=== PATIENT | female | born 1965 | race Caucasian/White ===

== ENCOUNTER 2018-11-16 07:55 | Day surgery (SDC) ==
[2018-11-16] MEDS: TETRACAINE 0.5% UNIT-DOSE OP PRN ×2 (08:05→08:45)
[2018-11-16] MEDS: BETADINE OPTH PREP OP PRN ×2 (08:05→08:45)
[2018-11-16] MEDS: CYCLOGYL 2% OPTH OP PRN ×3 (08:06→08:16)
[2018-11-16] MEDS ORDERED: LIDOCAINE 1% 20 ML MDV ID STA (08:18)
[2018-11-16] MEDS ORDERED: ZOFRAN 4 MG/2 ML IVP ONE (08:18)
[2018-11-16 08:26] VITALS: TEMP 976
[2018-11-16] MEDS ORDERED: VERSED ONE (08:50)
[2018-11-16] MEDS ORDERED: ZOFRAN 4 MG/2 ML ONE (08:50)
[2018-11-16] MEDS ORDERED: SUBLIMAZE ONE (08:50)
[2018-11-16] MEDS: LIDOCAINE 1%/PHENYLEPHRINE 1.5% BSS (SURGERY) INTRAOCULA ONE ×2 (08:55→09:06)
[2018-11-16] MEDS: BSS WITH EPINEPHRINE OP ONE ×2 (08:56→09:06)
[2018-11-16] MEDS: DEX-MOXI-KETOR OPTH INJ 1/0.5/0.4 MG/ML IO ONE ×2 (08:56→09:06)
[2018-11-18 09:17] VITALS: BP 137/68
== END 2018-11-16 09:55 | disposition home or self-care (01) ==
LOC: SURG 07:55
PROVIDERS: ATTEND Ophthalmology
DX: H25.11 Age-related nuclear cataract, right eye (principal)